=== PATIENT | male | born 1995 | race Caucasian/White ===

== ENCOUNTER 2019-03-13 22:37 | Emergency (ER) | payer OTHER, SELFPAY ==
[2019-03-13 22:40] VITALS: BP 167/104; PULSE 105; RESP 16; TEMP 36.6; O2SAT 98; BMI 37.6
--- NOTE | 2019-03-13 22:51 | ED.RN ---
pt reports heaviness and tingling in left arm not weakness
--- NOTE | 2019-03-13 22:58 | CT_ITS ---
STUDY: CTA HEAD AND NECK WITH CONTRAST REASON FOR EXAM: Male, 23 years old. Left arm tingling. Headache. Left upper extremity weakness. RADIATION DOSAGE (If Supplied By Facility): CTDIvol = ( 26.50 ) mGy, DLP = ( 153.32 ) mGycm TECHNIQUE: CT angiography was performed with a multi-detector CT scanner. Data acquisition was obtained from the skull base through the vertex following intravenous administration of 100ML IV Isovue 370. MIP images were reconstructed from the axial data set. Post-processing of the angiographic images was performed, with multiplanar reformation and 3D reconstruction. Individualized dose optimization techniques were used for this CT. COMPARISON: No relevant priors. FINDINGS: Normal bilateral petrous carotid arteries. Normal right cavernous carotid artery with a normal supraclinoid bifurcation. Normal left cavernous carotid artery with a normal supraclinoid bifurcation. Normal right A1 segments of the anterior cerebral artery. Normal left A1 segments of the anterior cerebral artery. Normal intact anterior communicating artery (ACOM). Normal bilateral A2 segments of the anterior cerebral arteries. Normal right M1 and M2 segments of the middle cerebral arteries, with a normal M1 bifurcation. Normal left M1 and M2 segments of the middle cerebral arteries, with a normal M1 bifurcation. Normal right posterior communicating artery (PCOM). Normal left posterior communicating artery (PCOM). There is a small atretic right vertebral artery with a dominant left vertebral artery. Normal basilar artery with a normal basilar bifurcation. The visualized bilateral superior cerebellar (SCA) arteries are normal. Normal bilateral P1, P2 and visualized P3 segments of the posterior cerebral arteries. There is no demonstrated aneurysm of the [place]. There is no demonstrated abnormality of the visualized brain. AORTIC ARCH: Normal visualized aortic arch. Normal origins of the brachiocephalic, left common carotid, and left subclavian arteries. RIGHT CAROTID ARTERIES: Normal right common carotid artery (CCA). Normal right common carotid bulb. Normal origin of the right internal carotid (ICA) artery without a hemodynamically significant stenosis. Normal visualized cervical portion of the right internal carotid artery. Normal origin of the right external carotid artery (ECA). LEFT CAROTID ARTERIES: Normal left common carotid artery (CCA). Normal left common carotid bulb. Normal origin of the left internal carotid (ICA) artery without a hemodynamically significant stenosis. Normal visualized cervical portion of the left internal carotid artery. Normal origin of the left external carotid artery (ECA). VERTEBRAL ARTERIES: There is enhancement within the bilateral vertebral arteries with a small right vertebral artery, and a dominant left vertebral artery. CT/CTA Head AND Neck W/ Contrast IMPRESSION: Normal CTA Head and neck with contrast. Electronically Signed: Rosales Aj MD at 23:48 EDT , Service support ,
--- NOTE | 2019-03-13 23:03 | ED.DCSUM_ITS ---
History of Present Illness Chief Complaint: Numb/Ting Informant: Patient Onset: Today Context: Gradual, Onset Timing: Continuous Quality: Dull - aching Location: bifrontal Current Severity: Gone Maximum Severity: Severe Associated Symptoms: Numbness - LUE and heaviness of arm, - - left neck pain. Negative for: Fever, Nausea, Vomiting, Sinus Pressure, Preceding Aura, Visual Changes, Blurred Vision, Photophobia, Visual Loss Injury: - - no trauma/injury/overuse Narrative: Around 2129, 1 hour prior to arrival, patient had relatively gradual onset of headache, he took ibuprofen and it took the headache away and is now gone, but as it went away started having tingling and heaviness in his left upper extremity and some soreness in the left side of his neck. He states he was lying supine in bed watching TV when all this happened, he was not sleeping. He states he had a slight discomfort in the left lateral aspect of his lower leg, and in his left jaw but no numbness or weakness in those areas. No trouble speaking. No confusion. He states it hurts his neck more to turn to the left, which is where it is sore in the back of his neck. He has never had any neck issues. The numbness and tingling in his arm is mild, still present, and he points to the dorsal aspect of his upper arm down to around his elbow. Nothing in his fingers. Prior similar symptoms: No Past Medical History - Allergies and Home Meds Allergies/Adverse Reactions: Allergies No Known Allergies Allergy (Verified 03/13/19 22:42) Primary Care Physician: Jaki Busby MD [Primary Care Provider] - Past Medical History: None Surgical History: no surgical history Smoking Status: Never smoker Drugs: None Review of Systems General: Denies: Chills, Fever, Sweats Eyes: Denies: Visual changes - bilaterally, Blurred Vision - bilaterally, Diplopia ENT: Denies: Rhinorrhea, Sore throat Cardiovascular: Denies: Chest pain, Palpitations Respiratory: Denies: Dyspnea, Cough, Dyspnea on exertion Gastrointestinal: Denies: Abdominal pain, Nausea, Vomiting, Diarrhea, Melena, Hematochezia Genitourinary: Denies: Dysuria, Hematuria, Frequency Musculoskeletal: Reports: Extremity Pain - see HPI; gone now. Denies: Back pain, Swelling Skin: Denies: Rash, Wounds Neurological: Reports: Headache - gone now, Weakness, Parasthesia Endocrine: Denies: Polyuria, Polydipsia, Heat intolerance, Cold intolerance Allergy: Denies: Uticaria, Swelling of the mouth, Swelling of the tongue Physical Exam Vital Signs/Narrative: Vital Signs Temp Pulse Resp BP Pulse Ox 03/13/19 22:40 98 F 105 H 16 167/104 H 98 Inital Vital Signs reviewed: Yes General: Well nourished, Well developed Head: NC, AT Eyes: Perrl, EOMI ENT: Moist mucous membranes, No rhinorrhea Neck: Supple, No Lymphadenopathy, No JVD, No Meningismus, Paraspinal Tenderness - mild left Cardiovascular: Regular rate, Regular rhythm, No murmurs Respiratory: No distress, CTA bilaterally, Chest nontender Abdomen: Soft, Nontender, Nondistended, Normal bowel sounds Back: Nontender, Normal Inspection Extremities: Nontender, No edema Skin: Normal color, No rash, No Trauma Neuro: Alert, Oriented x3, Cranial nerves II-XII grossly intact, Normal Strength - pt feels mild LUE heaviness now, objectively nml and symmetric strength all LUE muscle groups., Normal Sensation, Normal DTR, Normal Gait. Negative for: Hyperreflexia, Hyporeflexia Psychological: Normal affect, Normal Mood - NIH Stroke Scale 1a Level of Consciousness: 0 1b LOC Questions (Score 2 if aphasic/stupor): 0 1c LOC Commands (Only score 1st attempt): 0 2 Best Gaze (If aphasic, use reflexive mvmts.): 0 3 Visual: 0 4 Facial Palsy: 0 5 Motor Arm Right (UN = amputation/fusion): 0 5 Motor Arm Left: 0 6 Motor Leg Right: 0 6 Motor Leg Left: 0 7 Limb ataxia (Only + if out of proportion): 0 8 Sensory (Aphasia/stupor=0 or 1, coma=2): 0 9 Best Language: 0 10 Dysarthria (mute, coma=2, intubated=UN): 0 11 Extinction and Inattention (only scored if +): 0 Total Score: 0 Diagnostic/Tx/Re-eval Impressions Head/Neck CTA 03/13/19 22:58 IMPRESSION: Normal CTA Head and neck with contrast. Electronically Signed: Rosales Aj MD at 23:48 EDT , Service support , 03/13/19 22:58 CTA Head AND Neck W/ Contrast [CT] Stat Laboratory Results 03/13/19 03/13/19 23:05 23:05 WBC 12.0 H RBC 4.95 Hgb 15.0 Hct 42.7 MCV 86.3 MCH 30.3 MCHC 35.1 RDW Std Deviation 36.0 RDW Coeff of Dede 11.6 Plt Count 313 MPV 9.1 Immature Gran % (Auto) 0.400 Neut % (Auto) 65.9 Lymph % (Auto) 24.6 [place] % (Auto) 7.1 Eos % (Auto) 1.5 Baso % (Auto) 0.5 Absolute Neuts (auto) 7.9 H Absolute Lymphs (auto) 2.96 Nucleated RBC % 0 Sodium 139 Potassium 3.1 L Chloride 105 Carbon Dioxide 27.0 Anion Gap 7 BUN 12 Creatinine 1.36 H Estim Creat Clear Calc 78.30 Est GFR (MDRD) Af Amer 83 Est GFR (MDRD) Non-Af 68 BUN/Creatinine Ratio 8.8 L Glucose 167 H Calcium 9.0 - Medical Decision Making With observation the patient symptoms have improved, his neck is not hurting anymore, he states his arm feels a little heavy but improved from initial evaluation. Plain CT was normal, we sent him for CT angiography and it is also normal. Possibilities here include a migraine with neurologic symptoms, which he has never had before, hence the reason for the CT, as well as C5 radiculopathy in the neck, and/or neurapraxia. Subclinical seizure is thought to be much less likely. I do not think he is having stroke given his CTA results or TIA given his age and health. Labs show that his creatinine is a little elevated however he is very muscular, and this is probably related, and not an indicator of poor renal function. He does not do any supplements, creatine, etc. His potassium is slightly low at 3.1, he was given a dose of potassium chloride. No obvious reason for this, and it may or may not be related to the symptoms. His initial blood pressure was very high, but we rechecked it later, it is still high 168/86. Patient states he has been told he has whitecoat syndrome and has always had high pressures when they are checked, it is certainly conceivable as I discussed with the patient that he actually has hypertension. I think he should be started on a medication and I assume he could have high blood pressure until proven otherwise, unknown if it was causative or even related to the symptoms tonight, but certainly it is possible. Discussed with neurology Dr. Casper, who agrees with discharge on antihypertensives and close outpatient follow-up, but requests a urine toxicology screen to be performed first. This was unremarkable.. ED Disposition - Plan for ED Patient: Disposition: Home or Assisted Living Diagnosis: Accelerated hypertension, Cephalgia, Left arm weakness, Hypokalemia Instructions: HYPERTENSION, New (Begin Treatment), HEADACHE, Unspecified Prescriptions: Lisinopril 20 mg PO DAILY #30 tab Transmission Status: Pending to [facility] #30 Referrals: Carly Casper MD [STAFF PHYSICIAN] - (call for appt) Jaki Busby MD [Primary Care Provider] - 1-2 Weeks (for blood pressure recheck/management)
[2019-03-13 23:11] LABS: Absolute Lymphocyte Count 2.96 X10^3/uL (0.83-4.51); Absolute Neutrophil Count 7.9 X10^3/uL (2.0-7.7); Basophil# 0.06 X10^3/uL; Basophil% 0.5 % (0-1); Eosinophil# 0.18 X10^3/uL; Eosinophils% 1.5 % (0-5); Hematocrit 42.7 % (40-54); Lymphocyte # 2.96 X10^3/ul (4.0); Lymphocyte % 24.6 % (19-41); Mean Corp Hgb Conc 35.1 g/dL (32-36); Mean Corpuscular Hgb 30.3 pg (27.0-32.0); Mean Corpuscular Volume 86.3 fL (80-94); Mean Platelet Vol. 9.1 fl (6.2-12.0); Monocyte# 0.86 X10^3/uL; Monocyte% 7.1 % (0-10); NRBC Flagged by Analyzer 0 % (0-5); Neutrophil # 7.93 X10^3/uL (2.7-7.7); Neutrophil % 65.9 % (47-70); Platelet Count 313 K/mm3 (150-450); RBC Distribution Width CV 11.6 % (11.6-14.6); Red Blood Count 4.95 M/mm3 (4.6-6.2)
[2019-03-13 23:26] LABS: Anion Gap 7 (5-15); BUN 12 mg/dL (7-18); BUN/Creat Ratio 8.8 RATIO (10-20); Chloride 105 mmol/L (98-107); Creatinine, Serum 1.36 mg/dL (0.70-1.30); EST Glomerular Filtration Rate 68 mL/min (>60); Est Glom Filt Rate - Afr Amer 83 mL/min (>60); Glucose 167 mg/dL (74-106); Potassium 3.1 mmol/L (3.5-5.1); Sodium Level 139 mmol/L (136-145)
--- NOTE | 2019-03-14 00:16 | ED.RN ---
NEUROLOGIST PAGED THROUGH ANSWERING SERVICE
[2019-03-14 00:19] VITALS: BP 168/86; PULSE 84; RESP 16; O2SAT 99
[2019-03-14] MEDS: Lisinopril 20 MG Tablet PO (00:50)
[2019-03-14 00:52] LABS: Amphetamine Urine VISTA NEGATIVE (<1000 ng/mL); Barbiturate Urine VISTA NEGATIVE (< 200 ng/mL); Benzodiazepine Urine VISTA NEGATIVE (< 200 ng/mL); Cocaine Urine VISTA NEGATIVE (< 300 ng/mL); Ecstacy Urine VISTA NEGATIVE (< 500 ng/mL); Methadone Urine VISTA NEGATIVE (< 300 ng/mL); PCP Urine VISTA NEGATIVE (< 25 ng/mL); THC Urine VISTA NEGATIVE (< 50 ng/mL); Vista UDS pH Range 6
[2019-03-14 00:56] VITALS: RESP 16
== END 2019-03-14 00:57 | disposition home or self-care (01) ==
PROVIDERS: Emergency Provider Emergency Medicine; Family Provider Family Medicine; PCP Family Medicine
DX: I10 Essential (primary) hypertension (principal); R51 Headache; R53.1 Weakness; E87.6 Hypokalemia
CPT/HCPCS: 70496; 70498; 80048; 80307; 85025; 99284; J7030; Q9967

== ENCOUNTER → 2019-04-03 16:17 | Outpatient (CLI) | payer OTHER, SELFPAY ==
[2019-03-13 22:40] VITALS: BMI 37.6
[2019-04-03 17:32] LABS: Absolute Neutrophil Count 5.6 X10^3/uL (2.0-7.7); Basophil# 0.08 X10^3/uL; Basophil% 0.9 % (0-1); Eosinophil# 0.11 X10^3/uL; Eosinophils% 1.2 % (0-5); Hematocrit 44.4 % (40-54); Hemoglobin 14.9 g/dL (13.0-16.5); Mean Corp Hgb Conc 33.6 g/dL (32-36); Mean Corpuscular Hgb 29.2 pg (27.0-32.0); Mean Corpuscular Volume 87.1 fL (80-94); Mean Platelet Vol. 9.6 fl (6.2-12.0); Monocyte# 0.63 X10^3/uL; Monocyte% 7.1 % (0-10); NRBC Flagged by Analyzer 0 % (0-5); Neutrophil # 5.59 X10^3/uL (2.7-7.7); Neutrophil % 62.6 % (47-70); Platelet Count 339 K/mm3 (150-450); RBC Distribution Width CV 11.9 % (11.6-14.6); RBC Distribution Width SD 37.6 fl (35.1-43.9); White Blood Count 8.9 K/mm3 (4.4-11.0)
[2019-04-03 18:24] LABS: Thyroid Stim Hormone (TSH) 1.73 uIU/mL (0.358-3.74)
[2019-04-09 10:58] LABS: Anion Gap 8 (5-15); BUN 18 mg/dL (7-18); BUN/Creat Ratio 12.9 RATIO (10-20); Calcium,Total 9.8 mg/dL (8.5-10.1); Chloride 106 mmol/L (98-107); EST Glomerular Filtration Rate 66 mL/min (>60); Est Glom Filt Rate - Afr Amer 80 mL/min (>60); Glucose 66 mg/dL (74-106); Potassium 4.9 mmol/L (3.5-5.1); Sodium Level 138 mmol/L (136-145)
== END ==
PROVIDERS: Family Provider Family Medicine; PCP Family Medicine; Referring Provider Family Medicine; Visit Provider Family Medicine
DX: R00.2 Palpitations (principal)
CPT/HCPCS: 36415; 80048; 84443; 85025

== ENCOUNTER → 2019-06-19 14:39 | Outpatient (CLI) | payer OTHER, SELFPAY ==
[2019-06-19 15:38] LABS: Albumin, Serum 4.5 g/dL (3.2-5.0); BUN 14 mg/dL (7-18); BUN/Creat Ratio 12.5 RATIO (10-20); Calcium,Total 9.7 mg/dL (8.5-10.1); Chloride 102 mmol/L (98-107); Creatinine, Serum 1.12 mg/dL (0.70-1.30); EST Glomerular Filtration Rate 85 mL/min (>60); Est Glom Filt Rate - Afr Amer 103 mL/min (>60); Glucose 90 mg/dL (74-106); Phosphorus 3.2 mg/dL (2.5-4.9); Sodium Level 134 mmol/L (136-145)
[2019-06-26 15:35] LABS: Aldosterone, Serum 1.6
== END ==
PROVIDERS: Family Provider Family Medicine; PCP Family Medicine; Visit Provider Internal Medicine Nephrology
DX: R79.89 Other specified abnormal findings of blood chemistry (principal); E87.6 Hypokalemia
CPT/HCPCS: 36415; 80069; 82088; 84244

== ENCOUNTER → 2019-06-24 10:01 | Outpatient (CLI) | payer OTHER, SELFPAY ==
--- NOTE | 2019-06-24 10:03 | US_ITS ---
STUDY: RENAL ULTRASOUND - COMPLETE REASON FOR EXAM: Male, 23 years old. Hypertension. TECHNIQUE: Ultrasound evaluation of the kidneys was performed with real-time and static choe-scale imaging. COMPARISON: None. FINDINGS: RIGHT KIDNEY: Normal location of the right kidney, which is normal in size. The right kidney measures 10.8 cm x 4.7 cm x 5.2 cm. There is a normal cortex of the right kidney. The renal cortex measures 1.4 cm. There is no right renal mass or cyst. There are no right renal calculi. There is no right hydronephrosis. DISTAL RIGHT URETER: There is non-visualization of the distal right ureter. There is no demonstrated right ureterovesical junction calculus. There is no demonstrated right ureteral jet. LEFT KIDNEY: Normal location of the left kidney, which is normal in size. The left kidney measures 11.4 cm x 3.97 x 4.9 cm. There is a normal cortex of the left kidney. The renal cortex measures 1.7 cm. There is no left renal mass or cyst. There are no left renal calculi. There is no left hydronephrosis. DISTAL LEFT URETER: There is non-visualization of the distal left ureter. There is no demonstrated left ureterovesical junction calculus. There is no demonstrated left ureteral jet. BLADDER: The distended urinary bladder has a volume of 21 ml. There is a normal wall thickness of the distended urinary bladder. There is no demonstrated mass within the urinary bladder. There are no demonstrated bladder calculi. US/Kidney and Bladder IMPRESSION: Normal ultrasound of the kidneys and urinary bladder. Electronically Signed: Choco Sheikh, at 15:29 EST , Service support ,
== END ==
PROVIDERS: Family Provider Family Medicine; PCP Family Medicine; Referring Provider Internal Medicine Nephrology; Visit Provider Internal Medicine Nephrology
DX: I10 Essential (primary) hypertension (principal)
CPT/HCPCS: 76770

== ENCOUNTER → 2019-07-04 15:25 | Outpatient (CLI) | payer OTHER, SELFPAY | PROVIDERS: Family Provider Family Medicine; PCP Family Medicine; Visit Provider Internal Medicine Nephrology | DX: R79.89 Other specified abnormal findings of blood chemistry (principal); E87.6 Hypokalemia | CPT/HCPCS: 84244 ==

== ENCOUNTER → 2019-08-20 13:21 | Outpatient (CLI) | payer OTHER, SELFPAY ==
[2019-08-20 14:20] LABS: Albumin, Serum 4.1 g/dL (3.2-5.0); BUN 18 mg/dL (7-18); BUN/Creat Ratio 14.9 RATIO (10-20); Calcium,Total 9.7 mg/dL (8.5-10.1); Chloride 107 mmol/L (98-107); Creatinine, Serum 1.21 mg/dL (0.70-1.30); EST Glomerular Filtration Rate 78 mL/min (>60); Est Glom Filt Rate - Afr Amer 94 mL/min (>60); Glucose 91 mg/dL (74-106); Phosphorus 2.3 mg/dL (2.5-4.9); Potassium 3.8 mmol/L (3.5-5.1); Sodium Level 137 mmol/L (136-145)
== END ==
PROVIDERS: Family Provider Family Medicine; PCP Family Medicine; Visit Provider Internal Medicine Nephrology
DX: I10 Essential (primary) hypertension (principal)
CPT/HCPCS: 36415; 80069

== ENCOUNTER → 2020-07-03 16:19 | Outpatient (CLI) | payer OTHER, SELFPAY ==
[2020-07-03 18:15] LABS: Anion Gap 6 (5-15); BUN 16 mg/dL (7-18); BUN/Creat Ratio 13.9 RATIO (10-20); Calcium,Total 9.8 mg/dL (8.5-10.1); Chloride 103 mmol/L (98-107); Cholesterol 213 mg/dL (200); Creatinine, Serum 1.15 mg/dL (0.70-1.30); EST Glomerular Filtration Rate 82 mL/min (>60); Est Glom Filt Rate - Afr Amer 99 mL/min (>60); Glucose 86 mg/dL (74-106); High Density Lipoprotein 44 mg/dL; Potassium 3.9 mmol/L (3.5-5.1); Sodium Level 137 mmol/L (136-145); Triglycerides 290 mg/dL; Very Low Density Lipoprotein 58 mg/dL (5-40)
== END ==
PROVIDERS: PCP Family Medicine; Visit Provider Family Medicine
DX: I10 Essential (primary) hypertension (principal)
CPT/HCPCS: 36415; 80048; 80061

== ENCOUNTER 2020-08-31 13:21 | Inpatient (IN) | payer OTHER, SELFPAY ==
[2020-08-31 13:22] VITALS: BP 151/67; PULSE 73; RESP 18; TEMP 36.4; O2SAT 98; BMI 37.5
--- NOTE | 2020-08-31 13:45 | US_ITS ---
STUDY: ABDOMINAL ULTRASOUND - RIGHT UPPER QUADRANT REASON FOR VISIT: Male, 24 years old rug pain TECHNIQUE: Ultrasound evaluation of the right upper quadrant was performed with real-time and static [place]-scale imaging. TECHNICAL QUALITY: Adequate. COMPARISON: None. FINDINGS: Liver: The liver measures 16.7 cm. There is increased echogenicity consistent with fatty infiltration. The bile ducts are within normal limits. There is hepatic color flow. The direction of portal flow is hepatopetal. There is no demonstrated mass lesion. Gallbladder: Normal distended gallbladder. The gallbladder wall measures 3.0 mm. There is a negative sonographic Gregory''s sign. There is no pericholecystic fluid. There are no gallstones. Common Bile Duct (C.B.D.): The common bile duct measures 3 mm. Pancreas: There is nonvisualization of the pancreas due to overlying bowel gas. Right Kidney: Normal size of the right kidney. The right kidney measures 11.4 cm x 5.9 cm x 4.7 cm. Normal renal cortex. The right cortex measures 1.5 cm. There is no demonstrated renal mass or cyst. There is no right hydronephrosis. US/Gallbladder IMPRESSION: Fatty infiltration of the liver. Electronically Signed: Choco Sheikh MD at 15:02 EST , Service support ,
[2020-08-31 14:03] LABS: Absolute Lymphocyte Count 1.97 X10^3/uL (0.83-4.51); Absolute Neutrophil Count 16.6 X10^3/uL (2.0-7.7); Basophil# 0.06 X10^3/uL; Basophil% 0.3 % (0-1); Eosinophil# 0.03 X10^3/uL; Eosinophils% 0.2 % (0-5); Hematocrit 43.6 % (40-54); Lymphocyte # 1.97 X10^3/ul (4.0); Mean Corp Hgb Conc 36.7 g/dL (32-36); Mean Corpuscular Hgb 30.5 pg (27.0-32.0); Mean Platelet Vol. 9.3 fl (6.2-12.0); Monocyte# 0.94 X10^3/uL; Monocyte% 4.7 % (0-10); NRBC Flagged by Analyzer 0 % (0-5); Neutrophil # 16.64 X10^3/uL (2.7-7.7); Platelet Count 388 K/mm3 (150-450); RBC Distribution Width CV 11.5 % (11.6-14.6); RBC Distribution Width SD 34.4 fl (35.1-43.9); Red Blood Count 5.25 M/mm3 (4.6-6.2); White Blood Count 19.8 K/mm3 (4.4-11.0)
[2020-08-31] MEDS: Ketorolac 15 MG/ML Vial IV (14:12)
[2020-08-31] MEDS: Ondansetron 4 MG/2 ML Vial IV (14:12)
[2020-08-31] MEDS: 0.9% Normal Saline 1,000 ML 1000 ML IV (14:12)
--- NOTE | 2020-08-31 14:23 | ED.DCSUM_ITS ---
History of Present Illness Chief Complaint: Abd Pain Informant: Patient Narrative: 24-year-old male with past medical history of hypertension presents with concern for right upper quadrant pain and vomiting. States that approximately 4 hours ago he went to [employer] and had a cheeseburger and a shake. States that since that time has had diffuse abdominal pain which is been worse in his right upper quadrant which he describes as aching. States he has had 3 episodes of vomiting. Nonbilious or nonbloody. Denies any fever or chills. Denies any chest pain, shortness of breath, cough, urinary symptoms. Past Medical History - Allergies and Home Meds Allergies/Adverse Reactions: Allergies No Known Allergies Allergy (Verified 08/31/20 13:23) Primary Care Physician: Jaki Busby MD [Primary Care Provider] - Prior records reviewed: Yes Past Medical History: - - HTN Surgical History: no surgical history Lives: Spouse/ Significant Other Smoking Status: Never smoker Alcohol: None Drugs: None Review of Systems General: Denies: Chills, Fever, Sweats Eyes: Denies: Visual changes - bilaterally, Diplopia ENT: Denies: Rhinorrhea, Sore throat Cardiovascular: Denies: Chest pain, Palpitations Respiratory: Denies: Dyspnea, Cough, Dyspnea on exertion Gastrointestinal: Reports: Abdominal pain, Nausea, Vomiting. Denies: Diarrhea, Melena, Hematochezia Genitourinary: Denies: Dysuria, Hematuria, Frequency Musculoskeletal: Denies: Back pain, Extremity Pain Skin: Denies: Rash, Wounds Neurological: Denies: Headache, Weakness, Numbness Physical Exam Vital Signs/Narrative: Vital Signs Temp Pulse Resp BP Pulse Ox 08/31/20 13:22 97.5 F L 73 18 151/67 H 98 General: Well nourished, Well developed, No Acute Distress Head: Normocephalic, Atraumatic Eyes: Perrl, EOMI ENT: Moist mucous membranes, No rhinorrhea Neck: Supple, Nontender Cardiovascular: Regular rate, Regular rhythm, No murmurs Respiratory: No distress, CTA bilaterally, Chest nontender Abdomen: Soft, Nondistended, Normal bowel sounds, - - RUQ pain to palpation. No rebound. Back: Nontender, Normal Inspection Extremities: Nontender, No edema Skin: Normal color, No rash Neurological: Alert, Oriented x3, Cranial nerves II-XII grossly intact, Normal Strength, Normal Sensation Psychological: Normal affect, Normal Mood Diagnostic/Tx/Re-eval Clinical Impression(s) from Imaging Studies Gallbladder Ultrasound 08/31/20 13:45 IMPRESSION: Fatty infiltration of the liver. Electronically Signed: Choco Sheikh MD at 15:02 EST , Service support , Laboratory Data 08/31/20 08/31/20 13:43 13:43 WBC 19.8 H RBC 5.25 Hgb 16.0 Hct 43.6 MCV 83.0 MCH 30.5 MCHC 36.7 H RDW Std Deviation 34.4 L RDW Coeff of Dede 11.5 L Plt Count 388 MPV 9.3 Immature Gran % (Auto) 0.800 Neut % (Auto) 84.0 H Lymph % (Auto) 10.0 L [place] % (Auto) 4.7 Eos % (Auto) 0.2 Baso % (Auto) 0.3 Absolute Neuts (auto) 16.6 H Absolute Lymphs (auto) 1.97 Nucleated RBC % 0 Sodium 138 Potassium 4.0 Chloride 105 Carbon Dioxide 27.0 Anion Gap 6 BUN 18 Creatinine 1.14 Estim Creat Clear Calc 92.61 Est GFR (MDRD) Af Amer 100 Est GFR (MDRD) Non-Af 83 BUN/Creatinine Ratio 15.8 Glucose 124 H Calcium 9.2 Total Bilirubin 0.40 AST 46 H ALT 52 Alkaline Phosphatase 91 Total Protein 8.4 H Albumin 4.4 Globulin 4.0 Albumin/Globulin Ratio 1.1 Lipase 3307 H - Medical Decision Making Patient appears well and nontoxic. Tenderness to palpation in the abdomen in the mid epigastrium. Evidence of leukocytosis of 19,000. Patient was given 1 L of normal saline as well as Toradol and Zofran. Right upper quadrant ultrasound shows fatty infiltration of the liver without other acute pathology. Patient found to have a lipase of 3300. On reevaluation at 1530 patient continues to have pain and was given morphine. Given the leukocytosis and unclear cause of his pancreatitis CT with IV contrast was done. Shows evidence of acute pancreatitis without other acute etiology. Patient was continued to have pain following morphine and was given Dilaudid. Patient will be started 200 mL/h normal saline. Given his continued pain patient will be admitted n.p.o. Spoke with hospitalist who is agreeable this plan. Stable at time of admission. Impression: 1. Acute pancreatitis 2. Nausea and vomiting 3. Intractable abdominal pain ED Disposition - Plan for ED Patient: Disposition: Acute Care Hospital [facility] Referrals: Jaki Busby MD [Primary Care Provider] -
[2020-08-31 14:27] LABS: ALB/GLOB Ratio 1.1 RATIO (0.9-2.4); AST(SGOT) 46 U/L (15-37); Alanine Aminotransfer ALT/SGPT 52 U/L (16-61); Albumin, Serum 4.4 g/dL (3.2-5.0); Alkaline Phosphatase 91 U/L (45-117); Anion Gap 6 (5-15); BUN 18 mg/dL (7-18); BUN/Creat Ratio 15.8 RATIO (10-20); Calcium,Total 9.2 mg/dL (8.5-10.1); Chloride 105 mmol/L (98-107); Creatinine, Serum 1.14 mg/dL (0.70-1.30); EST Glomerular Filtration Rate 83 mL/min (>60); Est Glom Filt Rate - Afr Amer 100 mL/min (>60); Estimated Creatinine Clearance 92.61 ml/min; Glucose 124 mg/dL (74-106); Lipase 3307 U/L (73-393); Protein, Total 8.4 g/dL (6.4-8.2); Sodium Level 138 mmol/L (136-145)
--- NOTE | 2020-08-31 15:03 | ED.RN ---
PT GIVES PERMISSION TO SHARE HIS MEDICAL INFORMATION WITH HIS .
--- NOTE | 2020-08-31 15:29 | CT_ITS ---
STUDY: CT ABDOMEN AND PELVIS WITH CONTRAST REASON FOR EXAM: Male, 24 years old. ABDOMINAL PAIN SINCE 1030 AM, EPIGASTRIC PAIN RADIATION DOSAGE (If Supplied By Facility): CTDIvol = ( 13.47 ) mGy, DLP = ( 1111.16 ) mGycm TECHNIQUE: Transaxial images were obtained from the dome of the diaphragm to the symphysis pubis without oral contrast. IV 100mL Isovue-370 was administered. Sagittal and coronal images were reconstructed. Individualized dose optimization techniques were used for this CT. COMPARISON: None. FINDINGS: The visualized lung bases are unremarkable. The visualized portions of the heart are within normal limits. Normal liver. Normal gallbladder and extrahepatic biliary system. Normal spleen. Acute (mild) inflammation with edema and peripancreatic inflammatory stranding is present in the head and distal body regions of the pancreas. No demonstrated pancreatic necrosis. Normal bilateral adrenal glands. Normal right kidney. Normal left kidney. Normal visualized stomach. Normal small intestine. Normal colon. The appendix is visualized and appears normal. Normal abdominal aorta. Normal inferior vena cava. Normal retroperitoneum. Normal urinary bladder. Normal abdominal wall. Normal osseous structures. CT/Abdomen/Pelvis WITH Contrast IMPRESSION: 1. Acute pancreatitis. Electronically Signed: Ry Christiansen MD at 16:22 EST , Service support ,
[2020-08-31 15:51] VITALS: BP 139/83; PULSE 75; RESP 15; O2SAT 100
[2020-08-31] MEDS: Morphine 4 MG/ML Syringe IV (15:51)
--- NOTE | 2020-08-31 16:42 | PCM.HP.STD ---
Problem List (1) Acute pancreatitis Status: Acute Qualifiers: Pancreatitis type: unspecified pancreatitis type Acute pancreatitis complication: unspecified Qualified Code(s): K85.90 - Acute pancreatitis without necrosis or infection, unspecified (2) Hypertension Status: Chronic Qualifiers: Hypertension type: essential hypertension Qualified Code(s): I10 - Essential (primary) hypertension History of Present Illness Date of Admission: 08/31/20 Chief Complaint: Abdominal pain?1 day The patient is a 24 year old M with past medical history of hypertension who comes in with a 1 day history of severe abdominal pain. Patient gives a history of having had some smoothie and sandwich from [employer] around 10:30 AM on the day of admission. Soon after eating, he started to experience excruciating abdominal pain that initially was described as 'ujej-pgo-[id number]' from the lower chest down to the whole abdomen. He had a bowel movement which did seem to have helped with a little bit. He subsequently has severe nausea and vomited about 3 times. His pain has been constant, nagging, worse with movement or stretching of the abdomen. He has never had an episode like this before. He denied any fever or chills or sick contact. No dizziness or palpitations or chest pain. Patient takes alcohol occasionally; he last took 1 beer last night whilst watching the football game. Vitals in the ED showed temperature of 97.5F, heart rate 73, blood pressure 151/67, respiratory rate of 18, SPO2 was 98% on room air. WBC count was 19.8, hemoglobin 16.0, platelet count 388, sodium 138, potassium 4.0, chloride 105, bicarbonate 27, BUN 18, creatinine 1.14, which is about his baseline, calcium 9.2, LFTs unremarkable. Lipase 3307. Right upper quadrant ultrasound showed fatty liver, distended gallbladder, no gallstones or pericholecystic fluid. CT scan of the abdomen was consistent with peripancreatic inflammatory stranding with edema in the head and distal body. Past Medical History Past Medical History (Chronic Problems): Chronic Problems Hypertension (Chronic) Allergies No Known Allergies Allergy (Verified 08/31/20 13:23) Home Medications: Ambulatory Orders Medication Instructions Recorded Lisinopril [Zestril] 10 mg PO DAILY 08/31/20 Metoprolol Succinate 50 mg PO DAILY 08/31/20 Surgical History: - - Status post ACL right knee repair Psychiatric History: No pertinent psych hx Lives: Spouse/ Significant Other Smoking Status: Never smoker Alcohol: Occasional Drugs: None Review of Systems Constitutional: Denies: Chills, Fever, Weight Change HEENT: Denies: Head Aches, Sinus Congestion, Sinus Drainage Cardiovascular: Denies: Chest Pain, Palpitations Respiratory: Denies: Cough, Shortness of breath at rest, Sputum production Gastrointestinal: Denies: Abdominal Pain, Nausea, Vomiting Genitourinary: Denies: Dysuria Musculoskeletal: Denies: Joint Pain, Joint Tenderness Skin: Denies: Rash, Wounds Neurological: Denies: Numbness, Tingling, Focal weakness Psychiatric: Denies: Anxiety, Depression, Homicidal Ideations, Suicidal Ideations Hematologic/ Lymphatic: Denies: Easy Bruising, Easy Bleeding VTE Information - Inpt Only VTE Present on Admission: No VTE Pharm Prophylaxis ordered?: Yes Patient Problems: Active and Suspected Problems Acute pancreatitis (Acute) - Physical Exam Vitals/I&O's: Vital Signs Temp Pulse Resp BP Pulse Ox 97.5 F L 75 15 139/83 H 100 08/31/20 13:22 08/31/20 15:51 08/31/20 15:51 08/31/20 15:51 08/31/20 15:51 Oxygen Delivery Method Room Air Weight: 108.862 kg Body Mass Index (BMI) 37.5 Intake and Output for Last 24 Hours 08/29/20 08/30/20 08/31/20 23:59 23:59 23:59 Intake Total 1000 / 1000 Balance 1000 / 1000 General: Alert, Oriented x3, Cooperative HEENT: Atraumatic, PERRLA, EOMI, Normocephalic Neck: Supple, No JVD, Negative Carotid Bruits Lungs: Clear to auscultation, Normal air movement Cardiovascular: Regular rate, No murmurs Abdomen: Bowel Sounds Present, Soft, Non Tender Extremities: No edema, Capillary Refill Less than 3 Seconds Skin: No rashes, No breakdown Musculoskeletal: No Tenderness to Palpation of Joints or Extremities Neurological: Cranial nerves II-XII grossly intact Psych/Mental Status: Normal Affect, Appropriate Laboratory Results 08/31/20 13:43: WBC 19.8 H, RBC 5.25, Hgb 16.0, Hct 43.6, MCV 83.0, MCH 30.5, MCHC 36.7 H, RDW Std Deviation 34.4 L, RDW Coeff of Dede 11.5 L, Plt Count 388, MPV 9.3, Immature Gran % (Auto) 0.800, Neut % (Auto) 84.0 H, Lymph % (Auto) 10.0 L, Emmet % (Auto) 4.7, Eos % (Auto) 0.2, Baso % (Auto) 0.3, Absolute Neuts (auto) 16.6 H, Absolute Lymphs (auto) 1.97, Nucleated RBC % 0 08/31/20 13:43: Sodium 138, Potassium 4.0, Chloride 105, Carbon Dioxide 27.0, Anion Gap 6, BUN 18, Creatinine 1.14, Estim Creat Clear Calc 92.61, Est GFR (MDRD) Af Amer 100, Est GFR (MDRD) Non-Af 83, BUN/Creatinine Ratio 15.8, Glucose 124 H, Calcium 9.2, Total Bilirubin 0.40, AST 46 H, ALT 52, Alkaline Phosphatase 91, Total Protein 8.4 H, Albumin 4.4, Globulin 4.0, Albumin/Globulin Ratio 1.1, Lipase 3307 H Current Medications Sodium Chloride () 1,000 mls @ 200 mls/hr IV .Q5H JENNY Assessment/Plan All Active Problems Acute pancreatitis (Acute) 1. Acute pancreatitis, unclear etiology, admitting lipase of 3307 CT of the abdomen and pelvis confirms acute pancreatitis Ultrasound of the right upper quadrant was negative for acute gallstones, showed fatty liver LFTs are unremarkable Keep n.p.o., IV fluids, hold lisinopril, IV PPI, lipid profile in a.m. 2. Leukocytosis, likely reactive, no source of infection Repeat blood work in a.m. 3. Hypertension, controlled, will hold lisinopril Continue on metoprolol, hydralazine as needed 4. DVT prophylaxis?low risk; early ambulation recommended Inpatient E&M: 57068 Init Hosp L3
--- NOTE | 2020-08-31 16:53 | NURSING ---
MED SURG PAINTSIL ACUTE PANCREATITIS
[2020-08-31] MEDS: 0.9% Normal Saline 1,000 ML 200 ML IV (17:05)
[2020-08-31] MEDS: HYDROmorphone 0.5 MG/0.5 ML SYRINGE IV (17:05)
[2020-08-31 17:06] VITALS: BP 132/76; PULSE 76; RESP 15; TEMP 37.2; O2SAT 98
[2020-08-31 17:36] VITALS: BMI 38.8
[2020-08-31 17:40] VITALS: BMI 38.9
[2020-08-31 18:01] VITALS: BP 120/71; PULSE 80; RESP 18; TEMP 36.3; O2SAT 98
[2020-08-31] MEDS: Morphine 2 MG/ML Syringe IV ×2 (18:34→21:34)
[2020-08-31] MEDS: 0.9% Saline Lock 10 ML Syringe IV (18:34)
[2020-08-31 21:16] VITALS: BP 122/73; PULSE 89; RESP 16; TEMP 36.8; O2SAT 98
[2020-09-01 00:39] VITALS: BP 129/65; PULSE 96; RESP 16; TEMP 37.7; O2SAT 97
[2020-09-01] MEDS: Morphine 2 MG/ML Syringe IV (00:41)
[2020-09-01] MEDS: 0.9% Normal Saline 1,000 ML 150 ML IV ×3 (00:42→13:34)
[2020-09-01 06:05] VITALS: BP 137/72; PULSE 92; RESP 16; TEMP 37.4; O2SAT 96
[2020-09-01] MEDS: Acetaminophen 325 MG Tablet 650 MG PO ×2 (06:10→14:02)
[2020-09-01 07:11] LABS: Absolute Lymphocyte Count 1.66 X10^3/uL (0.83-4.51); Absolute Neutrophil Count 10.8 X10^3/uL (2.0-7.7); Basophil# 0.03 X10^3/uL; Basophil% 0.2 % (0-1); Eosinophil# 0.03 X10^3/uL; Eosinophils% 0.2 % (0-5); Hematocrit 40.8 % (40-54); Lymphocyte # 1.66 X10^3/ul (4.0); Lymphocyte % 12.2 % (19-41); Mean Corp Hgb Conc 34.3 g/dL (32-36); Mean Corpuscular Hgb 29.4 pg (27.0-32.0); Mean Corpuscular Volume 85.7 fL (80-94); Mean Platelet Vol. 9.4 fl (6.2-12.0); Monocyte# 1.05 X10^3/uL; Monocyte% 7.7 % (0-10); NRBC Flagged by Analyzer 0 % (0-5); Neutrophil # 10.78 X10^3/uL (2.7-7.7); Neutrophil % 79.3 % (47-70); Platelet Count 293 K/mm3 (150-450); RBC Distribution Width SD 37.2 fl (35.1-43.9); Red Blood Count 4.76 M/mm3 (4.6-6.2); White Blood Count 13.6 K/mm3 (4.4-11.0)
--- NOTE | 2020-09-01 07:19 | PCS.PANDOC ---
PANDEMIC DOCUMENTATION INITIATED: Date: 07/20/2020 Time:
[2020-09-01 07:24] LABS: ALB/GLOB Ratio 0.9 RATIO (0.9-2.4); AST(SGOT) 28 U/L (15-37); Alanine Aminotransfer ALT/SGPT 28 U/L (16-61); Albumin, Serum 3.4 g/dL (3.2-5.0); Alkaline Phosphatase 66 U/L (45-117); Anion Gap 6 (5-15); BUN 14 mg/dL (7-18); BUN/Creat Ratio 12.6 RATIO (10-20); Calcium,Total 8.8 mg/dL (8.5-10.1); Chloride 105 mmol/L (98-107); Cholesterol 170 mg/dL (200); Creatinine, Serum 1.11 mg/dL (0.70-1.30); EST Glomerular Filtration Rate 85 mL/min (>60); Est Glom Filt Rate - Afr Amer 103 mL/min (>60); Estimated Creatinine Clearance 95.11 ml/min; Globulin 3.9 g/dL (2.2-4.2); Glucose 100 mg/dL (74-106); High Density Lipoprotein 49 mg/dL; Protein, Total 7.3 g/dL (6.4-8.2); Sodium Level 136 mmol/L (136-145); Triglycerides 150 mg/dL; Very Low Density Lipoprotein 30 mg/dL (5-40)
[2020-09-01 08:00] VITALS: PULSE 92
[2020-09-01] MEDS: Metoprolol(XL)Succ 50 MG Tablet PO (08:00)
--- NOTE | 2020-09-01 09:55 | CASEMGMT ---
RN JOYCE Face to Face with patient for initial transition planning/care coordination assessment. RN CM introduced self and role at [facility]. Patient lying in bed, alert and oriented. Patient willing to participate in assessment and is able to answer all questions appropriately. Care providers, pharmacy, and demographics verified. Patient wishes to discharge home, denies need for home health at this time. Patient states he has no further needs or concerns at this time. CM to follow for discharge planning needs that may arise. PCP: Kehinde Specialists: none Preferred Pharmacy: [facility] Insurance: [facility] Prescription Benefit: yes Living Will/HPOA: none LNOK: Living Arrangements: Patient lives with in a 1 story home with 2 steps to enter the home. Patient states he is independent at home. Transportation: self, DME/HHC: Patient denies DME or previous HHC. Disposition Plan: Patient to discharge home with family support and follow-up plans in place. Peg PRAKASH, RN, CM
[2020-09-01 10:18] VITALS: BP 124/70; PULSE 88; RESP 18; TEMP 37.3; O2SAT 98
--- NOTE | 2020-09-01 11:52 | PCM.PN.HOSP ---
Patient Problems: Active and Suspected Problems Acute pancreatitis (Acute) Subjective: Feeling better, still with a little bit of pain in his abdomen Vitals/I&O's: Vital Signs Temp Pulse Resp BP Pulse Ox 99.2 F H 88 18 124/70 H 98 09/01/20 10:18 09/01/20 10:18 09/01/20 10:18 09/01/20 10:18 09/01/20 10:18 Oxygen Delivery Method Room Air Weight: 249 lb 1.957 oz Body Mass Index (BMI) 38.8 Intake and Output for Last 24 Hours 08/30/20 08/31/20 09/01/20 23:59 23:59 23:59 Intake Total 1493.33 / 1493.33 2221.67 / 2221.67 Output Total 1325 / 1325 Balance 1493.33 / 1093.33 896.67 / 896.67 General: Alert, Oriented x3, Cooperative, No apparent distress HEENT: Atraumatic, PERRLA, EOMI Oral: Moist Mucosa Neck: Supple, No JVD Lungs: Clear to auscultation, Normal air movement, No rhonchi, No wheeze, No rales Cardiovascular: Regular rate, Regular Rhythm, Normal S1, Normal S2 Abdomen: Soft, Non-Distended, No Hepato-splenomegaly, Tender - Epigastric region Extremities: No edema, Capillary Refill Less than 3 Seconds Skin: No rashes, No breakdown Neurological: Neuro grossly intact, Sensory exam intact to light touch and pain Psych/Mental Status: Normal Affect, Appropriate Laboratory Results 08/31/20 13:43: WBC 19.8 H, RBC 5.25, Hgb 16.0, Hct 43.6, MCV 83.0, MCH 30.5, MCHC 36.7 H, RDW Std Deviation 34.4 L, RDW Coeff of Dede 11.5 L, Plt Count 388, MPV 9.3, Immature Gran % (Auto) 0.800, Neut % (Auto) 84.0 H, Lymph % (Auto) 10.0 L, [place] % (Auto) 4.7, Eos % (Auto) 0.2, Baso % (Auto) 0.3, Absolute Neuts (auto) 16.6 H, Absolute Lymphs (auto) 1.97, Nucleated RBC % 0 08/31/20 13:43: Sodium 138, Potassium 4.0, Chloride 105, Carbon Dioxide 27.0, Anion Gap 6, BUN 18, Creatinine 1.14, Estim Creat Clear Calc 92.61, Est GFR (MDRD) Af Amer 100, Est GFR (MDRD) Non-Af 83, BUN/Creatinine Ratio 15.8, Glucose 124 H, Calcium 9.2, Total Bilirubin 0.40, AST 46 H, ALT 52, Alkaline Phosphatase 91, Total Protein 8.4 H, Albumin 4.4, Globulin 4.0, Albumin/Globulin Ratio 1.1, Lipase 3307 H 09/01/20 06:14: WBC 13.6 H, RBC 4.76, Hgb 14.0, Hct 40.8, MCV 85.7, MCH 29.4, MCHC 34.3 D, RDW Std Deviation 37.2, RDW Coeff of Dede 12.0, Plt Count 293, MPV 9.4, Immature Gran % (Auto) 0.400, Neut % (Auto) 79.3 H, Lymph % (Auto) 12.2 L, [place] % (Auto) 7.7, Eos % (Auto) 0.2, Baso % (Auto) 0.2, Absolute Neuts (auto) 10.8 H, Absolute Lymphs (auto) 1.66, Nucleated RBC % 0 09/01/20 06:14: Sodium 136, Potassium 4.0, Chloride 105, Carbon Dioxide 25.0, Anion Gap 6, BUN 14, Creatinine 1.11, Estim Creat Clear Calc 95.11, Est GFR (MDRD) Af Amer 103, Est GFR (MDRD) Non-Af 85, BUN/Creatinine Ratio 12.6, Glucose 100, Calcium 8.8, Total Bilirubin 0.50, AST 28, ALT 28, Alkaline Phosphatase 66, Total Protein 7.3, Albumin 3.4, Globulin 3.9, Albumin/Globulin Ratio 0.9, Triglycerides 150, Cholesterol 170, LDL Cholesterol 91, VLDL Cholesterol 30, HDL Cholesterol 49 Current Medications Acetaminophen (Acetaminophen 325 Mg Tablet) 650 mg PO Q6H PRN PRN PRN Reason: Pain Score 1-10/Temp > 100.7 F Last Admin: 09/01/20 06:10 Dose: 650 mg Documented by: Al Hydroxide/Mg Hydroxide (Mag Hydrox/Al Hydrox/Simeth 30 Ml Udc) 30 ml PO Q6H PRN PRN PRN Reason: Gastric Burning Hydralazine HCl (Hydralazine 20 Mg/Ml Vial) 5 mg IV Q4H PRN PRN PRN Reason: BLOOD PRESSURE Sodium Chloride () 1,000 mls @ 150 mls/hr IV .Q6H40M [facility] Last Infusion: 09/01/20 10:40 Dose: 150 mls/hr Documented by: Pantoprazole Sodium 40 mg/ (Sodium Chloride) 110 mls @ 330 mls/hr IV Q24 [facility] Last Infusion: 09/01/20 10:40 Dose: Infused Documented by: Metoprolol Succinate (Metoprolol(Xl)Succ 50 Mg Tablet) 50 mg PO DAILY [facility] Last Admin: 09/01/20 08:00 Dose: 50 mg Documented by: Morphine Sulfate (Morphine 2 Mg/Ml Syringe) 2 mg IV Q3H PRN PRN PRN Reason: Pain Score 6-10 Last Admin: 09/01/20 00:41 Dose: 2 mg Documented by: Ondansetron HCl (Ondansetron 4 Mg/2 Ml Vial) 4 mg IV Q8H PRN PRN PRN Reason: NAUSEA/VOMITING Sodium Chloride (0.9% Saline Lock 10 Ml Syringe) 10 - 40 ml IV UD PRN PRN Reason: SALINE FLUSH Last Admin: 08/31/20 18:34 Dose: 10 ml Documented by: STROKE Vital Signs/Narrative: Vital Signs Temp Pulse Resp BP Pulse Ox 09/01/20 10:18 99.2 F H 88 18 124/70 H 98 09/01/20 08:00 92 Medical Necessity - Tobacco Use Smoking Status: Never smoker Tobacco Use: Non-smoker Assessment/Plan All Active Problems Acute pancreatitis (Acute) 1. Acute pancreatitis -Triglycerides are only 150, he does not drink, ultrasound of his gallbladder demonstrated a normal common bile duct and lab work does not indicate a gallstone is the culprit -He is only on metoprolol and lisinopril as an outpatient neither of which are significant causes of pancreatitis -He is feeling better today, will start him on a clear liquid diet with some crackers and see how he tolerates that, will try to advance him to a low-fat diet if he tolerates 1 she could potentially be discharged this afternoon 2. Hypertension -Blood pressure stable -Continue with metoprolol, and if he is able to tolerate p.o. can restart his lisinopril DVT: Ambulation Inpatient E&M: 45918 Subs Hosp L2
[2020-09-01 14:07] VITALS: BP 117/65; PULSE 80; RESP 18; TEMP 37.3; O2SAT 98
--- NOTE | 2020-09-01 16:46 | DCINST_ITS ---
- Discharge Diagnoses Current Active Problems: Current Active and Chronic Problems Acute pancreatitis (Acute) Hypertension (Chronic) You will use the following diet at home:: Other - Low fat diet Your food should be the consistency of: Regular Your liquids should be the consistency of: Regular/Thin Discharge Activity: Return to Normal Activity Call your doctor if you observe: Fever of 101 or Higher, Shortness of breath, Dizziness, Fainting spells, Swelling in the ankles, Chest pain, Increased palpitations (irregular heartbeat) Instructions: ED Pancreatitis Allergies/Adverse Reactions: Allergies No Known Allergies Allergy (Verified 08/31/20 13:23) Medications to take at Discharge Lisinopril [Zestril] 10 mg PO DAILY 08/31/20 Metoprolol Succinate 50 mg PO DAILY 08/31/20 Primary Care Physician: Jaki Busby MD [Primary Care Provider] - Please follow up with your Primary Care Physician in: 3-5 days Test Results: Test results from this visit will be discussed in further detail at your follow- up appointment, if applicable.
--- NOTE | 2020-09-01 16:49 | DS.PCM_ITS ---
Discharge Date and Diagnosis - Problem List Patient Problems: Active and Suspected Problems Acute pancreatitis (Acute) Date of Admission: 08/31/20 Date of Discharge: 09/01/20 - Primary Discharge Diagnosis Acute Problems: Active Problems Acute pancreatitis (Acute) - Secondary Discharge Diagnosis Chronic Problems: Chronic Problems Hypertension (Chronic) Hospital Course and Treatment Imaging Results: Clinical Impression(s) from Imaging Studies Gallbladder Ultrasound 08/31/20 13:45 IMPRESSION: Fatty infiltration of the liver. Electronically Signed: Choco Sheikh MD at 15:02 EST , Service support , Abdomen/Pelvis CT 08/31/20 15:29 IMPRESSION: 1. Acute pancreatitis. Electronically Signed: Ry Christiansen MD at 16:22 EST , Service support , Operations: None Procedures: None Summary of Care Provided: Per HPI: The patient is a 24 year old M with past medical history of hypertension who comes in with a 1 day history of severe abdominal pain. Patient gives a history of having had some smoothie and sandwich from [employer] around 10:30 AM on the day of admission. Soon after eating, he started to experience excruciating abdominal pain that initially was described as '[id number]-[id number]' from the lower chest down to the whole abdomen. He had a bowel movement which did seem to have helped with a little bit. He subsequently has severe nausea and vomited about 3 times. His pain has been constant, nagging, worse with movement or stretching of the abdomen. He has never had an episode like this before. He denied any fever or chills or sick contact. No dizziness or palpitations or chest pain. Patient takes alcohol occasionally; he last took 1 beer last night whilst watching the football game. Vitals in the ED showed temperature of 97.5F, heart rate 73, blood pressure 151/67, respiratory rate of 18, SPO2 was 98% on room air. WBC count was 19.8, hemoglobin 16.0, platelet count 388, sodium 138, potassium 4.0, chloride 105, bicarbonate 27, BUN 18, creatinine 1.14, which is about his baseline, calcium 9.2, LFTs unremarkable. Lipase 3307. Right upper quadrant ultrasound showed fatty liver, distended gallbladder, no gallstones or pericholecystic fluid. CT scan of the abdomen was consistent with peripancreatic inflammatory stranding with edema in the head and distal body. Hospital Course: 1. Acute pancreatitis -Triglycerides are only 150, he does not drink, ultrasound of his gallbladder demonstrated a normal common bile duct and lab work does not indicate a gallstone is the culprit -He is only on metoprolol and lisinopril as an outpatient neither of which are significant causes of pancreatitis -He is feeling better today, will start him on a clear liquid diet with some crackers and see how he tolerates that, will advance to low-fat diet this afternoon which she tolerated very well with very little pain. He says he feels a little bit bloated but otherwise feels fine and wants to go home. I discussed the discharge plan with both him and his and expressed understanding of the risk benefits of going home and would like to go home today. 2. Hypertension -Blood pressure stable -Continue with metoprolol, and lisinopril Patient Problems: Active and Suspected Problems Acute pancreatitis (Acute) - Physical Exam Vitals/I&O's: Vital Signs Temp Pulse Resp BP Pulse Ox 99.2 F H 80 18 117/65 98 09/01/20 14:07 09/01/20 14:07 09/01/20 14:07 09/01/20 14:07 09/01/20 14:07 Oxygen Delivery Method Room Air Weight: 249 lb 1.957 oz Body Mass Index (BMI) 38.8 Intake and Output for Last 24 Hours 08/30/20 08/31/20 09/01/20 23:59 23:59 23:59 Intake Total 1493.33 / 1493.33 3229.17 / 3229.17 Output Total 3325 / 3325 Balance 1493.33 / 1093.33 -95.83 / -95.83 Laboratory Results 09/01/20 06:14: WBC 13.6 H, RBC 4.76, Hgb 14.0, Hct 40.8, MCV 85.7, MCH 29.4, MCHC 34.3 D, RDW Std Deviation 37.2, RDW Coeff of Dede 12.0, Plt Count 293, MPV 9.4, Immature Gran % (Auto) 0.400, Neut % (Auto) 79.3 H, Lymph % (Auto) 12.2 L, Evans % (Auto) 7.7, Eos % (Auto) 0.2, Baso % (Auto) 0.2, Absolute Neuts (auto) 10.8 H, Absolute Lymphs (auto) 1.66, Nucleated RBC % 0 09/01/20 06:14: Sodium 136, Potassium 4.0, Chloride 105, Carbon Dioxide 25.0, Anion Gap 6, BUN 14, Creatinine 1.11, Estim Creat Clear Calc 95.11, Est GFR (MDRD) Af Amer 103, Est GFR (MDRD) Non-Af 85, BUN/Creatinine Ratio 12.6, Glucose 100, Calcium 8.8, Total Bilirubin 0.50, AST 28, ALT 28, Alkaline Phosphatase 66, Total Protein 7.3, Albumin 3.4, Globulin 3.9, Albumin/Globulin Ratio 0.9, Triglycerides 150, Cholesterol 170, LDL Cholesterol 91, VLDL Cholesterol 30, HDL Cholesterol 49 Current Medications Acetaminophen (Acetaminophen 325 Mg Tablet) 650 mg PO Q6H PRN PRN PRN Reason: Pain Score 1-10/Temp > 100.7 F Last Admin: 09/01/20 14:02 Dose: 650 mg Documented by: Al Hydroxide/Mg Hydroxide (Mag Hydrox/Al Hydrox/Simeth 30 Ml Udc) 30 ml PO Q6H PRN PRN PRN Reason: Gastric Burning Hydralazine HCl (Hydralazine 20 Mg/Ml Vial) 5 mg IV Q4H PRN PRN PRN Reason: BLOOD PRESSURE Sodium Chloride () 1,000 mls @ 150 mls/hr IV .Q6H40M [facility] Last Admin: 09/01/20 15:48 Dose: Not Given Documented by: Pantoprazole Sodium 40 mg/ (Sodium Chloride) 110 mls @ 330 mls/hr IV Q24 [facility] Last Infusion: 09/01/20 10:40 Dose: Infused Documented by: Metoprolol Succinate (Metoprolol(Xl)Succ 50 Mg Tablet) 50 mg PO DAILY [facility] Last Admin: 09/01/20 08:00 Dose: 50 mg Documented by: Morphine Sulfate (Morphine 2 Mg/Ml Syringe) 2 mg IV Q3H PRN PRN PRN Reason: Pain Score 6-10 Last Admin: 09/01/20 00:41 Dose: 2 mg Documented by: Ondansetron HCl (Ondansetron 4 Mg/2 Ml Vial) 4 mg IV Q8H PRN PRN PRN Reason: NAUSEA/VOMITING Sodium Chloride (0.9% Saline Lock 10 Ml Syringe) 10 - 40 ml IV UD PRN PRN Reason: SALINE FLUSH Last Admin: 08/31/20 18:34 Dose: 10 ml Documented by: Discharge Diet: Low fat/ Low Cholesterol Discharge Activity: Return to Normal Activity Call your doctor if you observe: Fever of 101 or Higher, Shortness of breath, Dizziness, Fainting spells, Swelling in the ankles, Chest pain, Increased palpitations (irregular heartbeat) Home Medications: Medications to take at Discharge Lisinopril [Zestril] 10 mg PO DAILY 08/31/20 Metoprolol Succinate 50 mg PO DAILY 08/31/20 Primary Care Physician: Jaki Busby MD [Primary Care Provider] - Please follow up with your Primary Care Physician in: 3-5 days Patient Instructions: ED Pancreatitis Disposition: Home Minutes spent on discharge:: 35 Patient Condition:: Stable Medical Necessity - Tobacco Use Smoking Status: Never smoker Tobacco Use: Non-smoker Meaningful Use Info Meaningful Use Diagnoses (Choose all that apply): None applicable Inpatient E&M: 08891 Disch Hosp
== END 2020-09-01 17:00 | disposition home or self-care (01) | DRG 440 ==
LOC: ED 16:44 → MS3 17:02
PROVIDERS: Admitting Provider Internal Medicine; Emergency Provider Emergency Medicine; PCP Family Medicine; Visit Provider Family Medicine
DX: K85.90 Acute pancreatitis without necrosis or infection, unspecified (principal); I10 Essential (primary) hypertension; K76.0 Fatty (change of) liver, not elsewhere classified
CPT/HCPCS: 36415; 74177; 76705; 80053; 80061; 83690; 85025; 97802; 99251; 99284; J7030; Q9967; A4216; G0463; J2405

== ENCOUNTER → 2020-09-07 10:06 | Outpatient (CLI) | payer OTHER, SELFPAY ==
[2020-08-31 17:36] VITALS: BMI 38.8
[2020-09-07 13:39] LABS: Amylase 74 U/L (25-115); Lipase 479 U/L (73-393)
== END ==
PROVIDERS: PCP Family Medicine; Visit Provider Family Medicine
DX: K85.90 Acute pancreatitis without necrosis or infection, unspecified (principal)
CPT/HCPCS: 36415; 82150; 83690

== ENCOUNTER 2020-11-13 15:21 | Outpatient (RCR) | payer OTHER, SELFPAY | END 2021-01-19 23:59 | LOC: IMMUN 15:21 | PROVIDERS: PCP Family Medicine; Visit Provider Family Medicine | DX: Z23 Encounter for immunization (principal) | CPT/HCPCS: 0001A; 0002A; 91300 ==

== ENCOUNTER → 2021-12-31 | Outpatient (CLI) | payer OTHER, SELFPAY ==
[2021-12-31 19:03] LABS: Anion Gap 8 (5-15); BUN 24 mg/dL (7-18); BUN/Creat Ratio 18.6 RATIO (10-20); Calcium,Total 9.3 mg/dL (8.5-10.1); Chloride 106 mmol/L (98-107); Cholesterol 205 mg/dL (200); Creatinine, Serum 1.29 mg/dL (0.70-1.30); EST Glomerular Filtration Rate 71 mL/min (>60); Est Glom Filt Rate - Afr Amer 86 mL/min (>60); Glucose 94 mg/dL (74-106); High Density Lipoprotein 32 mg/dL; Potassium 3.8 mmol/L (3.5-5.1); Sodium Level 138 mmol/L (136-145); Triglycerides 527 mg/dL
== END | disposition home or self-care (01) ==
LOC: MFPLAB 16:28
PROVIDERS: PCP Family Medicine; Referring Provider Family Medicine; Visit Provider Family Medicine
DX: I10 Essential (primary) hypertension (principal)
CPT/HCPCS: 36415; 80048; 80061

== ENCOUNTER → 2022-01-06 | Outpatient (CLI) | payer OTHER, SELFPAY ==
[2022-01-06 10:39] LABS: Cholesterol 208 mg/dL (200); High Density Lipoprotein 42 mg/dL; Triglycerides 298 mg/dL; Very Low Density Lipoprotein 60 mg/dL (5-40)
== END | disposition home or self-care (01) ==
LOC: MFPLAB 08:43
PROVIDERS: PCP Family Medicine; Referring Provider Family Medicine; Visit Provider Family Medicine
DX: E78.5 Hyperlipidemia, unspecified (principal)
CPT/HCPCS: 36415; 80061

== ENCOUNTER → 2023-02-01 | Outpatient (CLI) | payer OTHER, SELFPAY ==
[2023-02-01 11:20] LABS: AST(SGOT) 19 U/L (15-37); Alanine Aminotransfer ALT/SGPT 25 U/L (16-61); Anion Gap 7 (5-15); BUN 14 mg/dL (7-18); BUN/Creat Ratio 12.6 RATIO (10-20); Calcium,Total 9.3 mg/dL (8.5-10.1); Chloride 105 mmol/L (98-107); Cholesterol 223 mg/dL (200); Creatinine, Serum 1.11 mg/dL (0.70-1.30); EST Glomerular Filtration Rate 84 mL/min (>60); Est Glom Filt Rate - Afr Amer 101 mL/min (>60); Glucose 100 mg/dL (74-106); High Density Lipoprotein 35 mg/dL; Potassium 3.9 mmol/L (3.5-5.1); Sodium Level 137 mmol/L (136-145); Triglycerides 595 mg/dL
== END | disposition home or self-care (01) ==
LOC: MFPLAB 08:13
PROVIDERS: PCP Family Medicine; Visit Provider Family Medicine
DX: E78.5 Hyperlipidemia, unspecified (principal); I10 Essential (primary) hypertension
CPT/HCPCS: 36415; 80048; 80061; 84450; 84460

== ENCOUNTER → 2025-07-03 | Outpatient (CLI) | payer OTHER, SELFPAY ==
--- OUTSIDE RECORDS SUMMARY | 2025-07-03 08:52 | XMS RPT_ITS | CCD ---
Author Organization [facility] Inform ion Partnership [facility] Care Team Providers Care Consumer Loan Manager Name Role Phone RIO HERNANDEZ Unavailable Unavailable RIO HERNANDEZ Unavailable Unavailable RIO HERNANDEZ Unavailable Unavailable JAKI BUSBY Unavailable Unavailable PROVIDER, UNKNOWN Unavailable Unavailable Jaki Busby Referring Unavailable Jaki Busby Primary Care Unavailable Natan Borges Attending Unavailable Medications Current Medications Medication Drug Class(es) Dates Sig (Normalized) Sig (Original) lisinopril 10 mg oral tablet (4 sources) Angiotensin Converting Enzyme Inhibitor Start: 08-31-2020 take 10 mg by mouth once daily Lisinopril Active 10 MG PO DAILY August 31, 2020 5:43pm Start: 03-14-2019 End: 08-31-2020 take 20 mg by mouth once daily Lisinopril Discontinued 20 MG PO DAILY March 14, 2019 12:39am August 31, 2020 3:14pm metoprolol tartrate 50 mg oral tablet (2 sources) beta-Adrenergic Jaswinder Start: 08-31-2020 take 50 mg by mouth once daily Metoprolol Succinate Active 50 MG PO DAILY August 31, 2020 3:13pm Problems Active Problems Problem Classification Problem Date Documented Date Episodic/Chronic Essential hypertension (4 sources) Malignant hypertension; Translations: [Essential (primary) hypertension] 03-15-2019 Chronic Fever of unknown origin (1 source) Fever, unspecified; Translations: [Fever, unspecified] Onset: 09-26-2024 Episodic Fluid and electrolyte disorders (2 sources) Hypokalemia; Translations: [Hypokalemia] 03-15-2019 Episodic Headache; including migraine (2 sources) Headache; Translations: [Headache] 03-15-2019 Episodic Other connective tissue disease (2 sources) Muscle weakness of upper limb; Translations: [Other symptoms and signs involving the musculoskeletal system] 03-15-2019 Episodic Pancreatic disorders (not diabetes) (2 sources) Acute pancreatitis; Translations: [Acute pancreatitis without necrosis or infection, unspecified] 08-31-2020 Episodic Past or Other Problems Problem Classification Problem Date Documented Da te Episodic/Chronic Superficial injury; contusion (3 sources) Contusion of left foot, initial encounter; Translations: [Contusion of left foot, initial encounter] Onset: 01-11-2017 Episodic Results Test Name Value Interpretation Reference Range Facility Urgent Care Visit Reporton 0 09-26-2024 Urgent Care Visit Report [facility] [address], [address] [place] [address] OFFICE VISIT Date of Service: 09/26/24 MR#: [id number] Acct: [id number] Name: AJAY CHAVEZ Rep #: [id number] 12 : 1995 Provider: PAPO Fam Age/Sex: 29/M Location: [facility] Status: Signed Intake Vital Signs 09/01/20 11:54 09/26/24 17:42 Height 5 ft 7 in 5 ft 7 in Weight: 249 lb BMI 38.9 BP 126/86 H Blood Pressure Location Lt brachial Position Sitting Respiration 16 Pulse 84 Pulse Source NIBP Temp 99.0 F Temp Source Oral Pulse Oximetry (%) 99 Oxygen Delivery Method room air Intake Visit Reasons: FEVER, CONGESTION Chief Complaint: fever, BA, congest, laryngitis Medical Research Tech Required: No Is patient in pain?: No Allergies No Known Allergies Allergy (Verified 09/26/24 17:43) Have you fallen in the past year?: No Nurse's Note: fever, BA, congest, laryngitis x [address], SOTO PFSH Surgical History (Updated 09/26/24 @ 17:45 by Rosita Koenig) Hx of anterior cruciate ligament surgery Family History (Updated 09/26/24 @ 17:45 by Rosita Koenig) Other Breast cancer Social History Smoking Status: Never smoker HPI HPI Chief Complaint: fever, BA, congest, laryngitis Details: AJAY CHAVEZ, is a 29 M who presents to the office today for complaint of fever, congestion and loss of voice for the past 4 days. Patient denies Oxis, shortness of breath or difficulty breathing. No diarrhea. Patient is unaware of his fever Tmax. No other associated symptoms or alleviating/aggrav ating factors. ROS Const Constitutional: No other (6 system ROS completed with pertinent findings in the HPI otherwise normal.) Exam Const General: cooperative and well developed HENMT Head: normal to inspection and atraumatic Ears: hearing grossly normal bilaterally Nose: nasal discharge clear Face and sinus: normal facial exam Mouth: oral mucosae normal Throat: abnormal tonsil bilaterally hypertrophy 1+ Resp Effort Inspection: normal respiratory effort and no audible wheezes Auscultation: Bilateral: Clear to Auscultation Cardio Palpation: normal PMI Rate: regular rate Rhythm: regular rhythm Neuro General: patient alert and CN's II-XI intact bilaterally Psych Appearance: grossly normal Mental Status: mental status grossly normal Results POC SARS AG POC SARS AG Negative Last Edit by Rosita Koenig on 09/26/24 17:51 POC FLU A B Office Flu A B Pos FLU A Neg FLU B Last Edit by Rosita Koenig on 09/26/24 17:51 Coding Level of Care Code Off vis,new,level 3 Diagnoses Influenza due to influenza virus, type A, human J10.1 Assessment and Plan Assessment and Plan (1) Influenza due to influenza virus, type A, human: Status: Acute Plan: Patient tested positive for influenza A in the office today. Encouraged to get plenty of rest, drink lots of clear liquids, and use Tylenol or Ibuprofen (unless contraindicated) for fever and comfort. Patient also educated on other symptomatic management techniques. To be seen in 7-10 days if no improvement; sooner if worsening of symptoms. Patient advised of potential red flags and when appropriate to report to the ED. Patient verbalized understanding and agreement with all the above. Orders: Orders POC FLU A B 09/26/24 R50.9 - Fever, unspecified POC Rapid SARS Antigen 09/26/24 Clinical Quality Measures Falls Risk Screening/Assistiv e Devices Have you fallen in the past year?: No 09/27/24 0749 Date Natan BARROS Cosigner Signature: Date (if applicable) CC: Normal [facility] Basophil percentageOrdered B y: Dr. Busby on 02-01-2023 Chloride [Moles/Vol] 105 mmol/L 98-107 [facility] Cholesterol [Mass/Vol] 223 mg/dL <200 [facility] Comment on above: <200 mg/dL Desirable 200-240 mg/dL Borderline >240 mg/dL High Risk Glucose [Mass/Vol] 100 mg/dL 74-106 [facility] Comment on above: Fasting Glucose resu lt from 100 to 125 mg/dL suggests IMPAIRED HOMEOSTASIS per A.D.A. criteria. Potassium [Moles/Vol] 3.9 mmol/L 3.5-5.1 [facility] Sodium [Moles/Vol] 137 mmol/L 136-145 [facility] Triglyceride [Mass/Vol] 595 mg/dL <[address] [facility] Comment on above: The drugs N-Acetylcy steine and Metamizole may falsely depress this assay. TRIGLYCERIDE IS GREATER THAN 400 mg/dL. LDL RESULT IS INVALID AND WILL NOT BE REPORTED.Serum Triglycerides Reference Interval Normal <150 mg/dL Borderline high 150 - 199 mg/dL High 200 - 499 mg/dL Very High > or = 500 mg/dL Laboratory - Chemistry and C hemistry - challengeOrdered By: Dr. Busby on 02-01-2023 ALT [Catalytic activity/Vol] 25 U/L 16-61 [facility] CO2 [Moles/Vol] 25.0 mmol/L 21.0-32.0 [facility] Urea nitrogen/Creatinine [Mass ratio] 12.6 mg/mg 10-20 [facility] No Panel InformationOrdered By: Dr. Busby on 02-01-2023 Estimated GFR (MDRD) Amer 101 mL/min >60 [facility] Comment on above: GFR Calc Estimated GFR (MDRD) Non-Af Amer 84 mL/min >60 [facility] Comment on above: Non- GFR Calc Serum or plasma calcium juan urement (mass/volume)Ordered By: Dr. Busby on 02-01-2023 Calcium [Mass/Vol] 9.3 mg/dL 8.5-10.1 [facility] Serum or plasma cholesterol in HDL measurement (mass/volume)Ordered By: Dr. Busby on 02-01-2023 Cholesterol in HDL [Mass/Vol] 35 mg/dL >40 [facility] Comment on above: The drugs N-Acetylcy steine and Metamizole may falsely depress this assay. Reference Range HDL <40 mg/dL Low HDL Cholesterol HDL >or= 60 mg/dL High HDL Cholesterol Serum or plasma cholesterol in VLDL measurement (mass/volume)Ordered By: Dr. Busby on 02-01-2023 Cholesterol in VLDL [Mass/Vol] TNP [facility] Comment on above: Test not performed Serum or plasma creatinine m easurement (mass/volume)Ordered By: Dr. Busby on 02-01-2023 Creatinine [Mass/Vol] 1.11 mg/dL 0.70-1.30 [facility] Comment on above: The validity of the calculated GFR & GFRAA in patients over 70 years has not been determined. Clinical correlation is essential. Serum or plasma low density lipoprotein (LDL) cholesterol measurement (mass/volume)Ordered By: Dr. Busby on 02-01-2023 Cholesterol in LDL [Mass/Vol] [facility] Comment on above: Test not performed Serum or plasma urea nitroge n measurement (mass/volume)Ordered By: Dr. Busby on 02-01-2023 Urea nitrogen [Mass/Vol] 14 mg/dL 7-18 [facility] Thin prep Papanicolaou smear with manual screeningOrdered By: Dr. Busby on 02-01-2023 Thin prep Papanicolaou smear with manual screening 19 U/L 15-37 [facility] Thin prep Papanicolaou smear with manual screening 7 5-15 [facility] Basophil percentageon 2021 Chloride [Moles/Vol] 106 mmol/L 98-107 [facility] Work Phone: Cholesterol [Mass/Vol] 205 mg/dL <200 [facility] Work Phone: Comment on above: <200 mg/dL Desirable 200-240 mg/dL Borderline >240 mg/dL High Risk Glucose [Mass/Vol] 94 mg/dL 74-106 [facility] Work Phone: Potassium [Moles/Vol] 3.8 mmol/L 3.5-5.1 [facility] Work Phone: Sodium [Moles/Vol] 138 mmol/L 136-145 [facility] Work Phone: Triglyceride [Mass/Vol] 527 mg/dL [facility] Work Phone: Comment on above: The drugs N-Acetylcy steine and Metamizole may falsely depress this assay. TRIGLYCERIDE IS GREATER THAN 400 mg/dL. LDL RESULT IS INVALID AND WILL NOT BE REPORTED.Serum Triglycerides Reference Interval Normal <150 mg/dL Borderline high 150 - 199 mg/dL High 200 - 499 mg/dL Very High > or = 500 mg/dL Laboratory - Chemistry and C hemistry - challengeon 12-31-2021 CO2 [Moles/Vol] 24.0 mmol/L 21.0-32.0 [facility] Work Phone: Urea nitrogen/Creatinine [Mass ratio] 18.6 mg/mg 06-02 [facility] Work Phone: No Panel Informationon 12-31 Estimated GFR (MDRD) Amer 86 mL/min >60 [facility] Work Phone: Comment on above: GFR Calc Estimated GFR (MDRD) Non-Af Amer 71 mL/min >60 [facility] Work Phone: Comment on above: Non- GFR Calc Serum or plasma calcium juan urement (mass/volume)on 12-31-2021 Calcium [Mass/Vol] 9.3 mg/dL 8.5-10.1 [facility] Work Phone: Serum or plasma cholesterol in HDL measurement (mass/volume)on 12-31-2021 Cholesterol in HDL [Mass/Vol] 32 mg/dL [facility] Work Phone: Comment on above: The drugs N-Acetylcy steine and Metamizole may falsely depress this assay. Reference Range HDL <40 mg/dL Low HDL Cholesterol HDL >or= 60 mg/dL High HDL Cholesterol Serum or plasma cholesterol in VLDL measurement (mass/volume)on 12-31-2021 Cholesterol in VLDL [Mass/Vol] [facility] Work Phone: Comment on above: Test not performed Serum or plasma creatinine m easurement (mass/volume)on 12-31-2021 Creatinine [Mass/Vol] 1.29 mg/dL 0.70-1.30 [facility] Work Phone: Comment on above: The validity of the calculated GFR & GFRAA in patients over 70 years has not been determined. Clinical correlation is essential. Serum or plasma low density lipoprotein (LDL) cholesterol measurement (mass/volume)on 12-31-2021 Cholesterol in LDL [Mass/Vol] [facility] Work Phone: Comment on above: Test not performed Serum or plasma urea nitroge n measurement (mass/volume)on 12-31-2021 Urea nitrogen [Mass/Vol] 24 mg/dL 7-18 [facility] Work Phone: Thin prep Papanicolaou smear with manual screeningon 12-31-2021 Thin prep Papanicolaou smear with manual screening 8 5-15 [facility] Work Phone: Encounters Encounter Date Encounter Type Care Provider Facility Start: 09-26-2024 End: 09-26[facility] Start: 02-01-2023 End: 02-01-2023 [facility] Work [facility] Start: 02-01-2023 End: 02-01-[address] [facility] Start: 12-31-2021 End: 12-31-[address] [facility] Start: 01-11-2017 End: 01-11-2017 Ambulatory RIO Reyes [facility] Payers Date Payer Category Payer Self-pay [id number] 2024 Unknown [id number] Unknown [id number] Unknown [facility] [id number] Unknown [id number] Worker's Compensation [id number] Social History Date Type Detail Facility Start: 08-31-2020 Tobacco smoking status NHIS Unknown if ever smoked [facility] Start: 08-31-2020 Occasional [facility] Start: 08-31-2020 None [facility] Start: 08-31-2020 Spouse/ Signif icant Other [facility] Start: 08-31-2020 Non-smoker [facility] Start: 1995 Sex Assigned At Male [facility] Evaluation note Note Date & Type Note Facility Evaluation note No assessment information availa ble [facility] Work Phone: Summary Purpose Family History No Family History Records FoundNo Family History Records Found Advance Directives No Advanced Directives Records Found Advance Directive Response Recorded Date/ Time Living Will No August 31 6:39pm Power of Hog Slaughterer No August 31, 2020 6:39pm Additional Source Comments (unrecognized sect ion and content) No Status Records FoundNo Status Records Found INFORMATION SOURCE (unrecogn ized section and content) DATE CREATED [facility]07/[facility] DATE CREATED AUTHOR AUTHOR'S ORGANIZ ATION 09/29/2024 [facility] Goals (unrecognized section and content) Goals may be documented in a n alternate sectionGoals may be documented in an alternate section Care Teams (unrecognized sec tion and content) Team Status: Active Member Role Status Dates Dr. Jaki Busby MD Family Provider Active Dr. Jaki Busby MD Primary Care Provider Active Team Status: Inactive Member Role Status Dates Dr. Jaki Busby MD Primary Care Provider, Shailesh martell Provider Active FOR RECORDS PERTAINING TO PATIENTS WHO ARE OR HAVE BEEN ENROLLED IN A CHEMICAL DEPENDENCY/SUBSTANCEABUSE PROGRAM, SOME INFORMATION MAY BE OMITTED. This clinical summary was aggregated from multiple sources. Caution should be exercised in using it in the provision of clinical care. This summary normalizes information from multiple sources, and as a consequence, information in this document may materially change the coding, format and clinical context of patient data. In addition, data may be omitted in some cases. CLINICAL DECISIONS SHOULD BE BASED ON THE PRIMARY CLINICAL RECORDS. [facility] [employer] [facility]. provides no warranty or guarantee of the accuracy or completeness of information in this document.
[2025-07-03 11:27] LABS: Anion Gap 14 (5-15); BUN 15 mg/dL (4-19); BUN/Creat Ratio 13.3 RATIO (10-20); Calcium,Total 9.9 mg/dL (7.6-11.0); Carbon Dioxide 22.5 mmol/L (21.0-32.0); Chloride 103 mmol/L (98-108); Cholesterol 201 mg/dL (<=200); Glucose 94 mg/dL (70-99); Low Density Lipoprotein Calc. 95 mg/dL; Potassium 4.2 mmol/L (3.3-5.1); Triglycerides 392 mg/dL; Very Low Density Lipoprotein 78 mg/dL (5-40); cholesterol:hdl ratio screen 5.00
== END | disposition home or self-care (01) ==
LOC: MFPLAB 08:15
PROVIDERS: PCP Family Medicine; Visit Provider Family Medicine
DX: E78.5 Hyperlipidemia, unspecified (principal); I10 Essential (primary) hypertension
CPT/HCPCS: 36415; 80048; 80061